=== PATIENT | female | born 1940 | race Caucasian/White ===

== ENCOUNTER → 2021-06-26 | Outpatient (CLI) | payer OTHER ==
[~2021-06-26] MED LIST: BAYER CHEWABLE81 MG PO; CARISOPRODOL 3350 MG PO; CYMBALTA60 MG PO; DARVOCET-N 1001 EAC1; DYAZIDE 37.5-21 EACH; EFFIENT10 MG PO; EVISTA; KEFLEX500 M1 PO; LIPITOR 20 MG T20 M1 PO; LIPITOR10 MG PO; LOPRESSOR25 PO; NAPROSYN500 MG PO; NITROGLYCERIN0.4 MG SL; OMEPRAZOLE40 MG PO; PERCOCET 5-3251 EACH PO; QUINAPRIL 20 MG20 MG PO; RANITIDINE HCL300 MG PO; TRIAMTERENE/HCT1 CA1 PO; ZOCOR 20 MG TAB20 M1
== END ==
LOC: M.ULTRA 16:00
PROVIDERS: ATTEND Family Medicine
DX: R19.09 Other intra-abdominal and pelvic swelling, mass and lump (principal); N93.9 Abnormal uterine and vaginal bleeding, unspecified; N95.0 Postmenopausal bleeding